=== PATIENT | male | born 1950 | race Caucasian/White ===

== ENCOUNTER 2016-10-07 20:14 | Observation (INO) | payer MEDICARE, BC ==
[~2016-10-07 20:14] MED LIST: ASPIRIN E.C. 8181 M1 PO; CADUET 10 MG-201 TAB PO; FLUOXETINE20 M1 PO; HCTZ 25MG TAB25 MG PO; PREDNISONE20 MG PO; VIAGRA100 MG PO
[2016-10-07] MEDS ORDERED: PROZAC20 M1 PO (20:31)
[2016-10-07] MEDS ORDERED: NORVASC 10MG10 MG PO (20:32)
[2016-10-07] MEDS ORDERED: LIPITOR20 M2 PO (20:32)
--- NOTE | 2016-10-07 23:47 | NUR ---
PATIENT ADMITTED FROM ER TO OBSERVATION STATUS WITH DIAGNOSIS OF GI BLEED, PATIENT HAD NOTICED BLOOD IN STOOLS X 1 DAY AND BLOOD IN VOMIT X 1 DAY, BUT HAD NOTICED DARK COLORED STOOLS FOR ABOUT A WEEK, IV IN PLACE TO RIGHT WRIST UPON ADMISSION, PATIENT ALERT AND ORIENTED, MILD NAUSEA, C/O DIFUSE ABDOMINAL ACHING RATED 2/10, ORIENTED TO ROOM, ENCOURAGED TO CALL BEFORE GETTING UP, EDUCATED ON PLAN OF CARE, AT BEDSIDE AT TIME OF ADMISSION, SHE WILL GO HOME TO BRING HIS CPAP MACHINE AND HOME MEDICATIONS UP,
[2016-10-07 23:59] VITALS: BP 142/93
[2016-10-08 02:53] VITALS: BP 157/96
--- NOTE | 2016-10-08 05:40 | NUR ---
PATIENT AMBULATES TO THE BATHROOM, VOIDS AND HAS A LOOSE DARK COLORED STOOL, THERE IS SOME RED NOTED AROUND THE RIM OF THE TOILET, PATIENT DENIES ANY NAUSEA, PAIN RATED 1/10 A VERY MILD ACHE TO HIS ABDOMEN, STATES HE FEELS MUCH BETTER, AMBULATES BACK TO BED, VITALS TAKEN, CPAP PLACED BACK ON FACE, DENIES ANY NEEDS/COMPLAINTS AT THIS TIME
[2016-10-08 06:22] VITALS: BP 149/85
--- NOTE | 2016-10-08 07:30 | NUR ---
PATIENT HAS HAD 3 DARK COLORED STOOLS SINCE ADMISSION TO ER LAST NIGHT, ONE WHILE IN ER AND 2 SINCE MIDNIGHT, NO VOMITING NOTED, DENIES ANY CURRENT NAUSEA, RESTING QUIETLY IN BED, CALL LIGHT WITHIN REACH
--- NOTE | 2016-10-08 09:28 | NUR ---
Pt sitting up in bed. Rates pain 1/10 in abd and describes it as a soreness from vomitting yesterday. Has not had any more stool this shift. IV infusing as ordered.
[2016-10-08 11:41] VITALS: BP 135/81
[2016-10-08 15:03] VITALS: BP 121/73
--- NOTE | 2016-10-08 15:13 | NUR ---
Pt resting in bed. Continues to deny any pain or nausea. Inquring when he will be able to go home. No stools noted this shift so far. IV infusing as ordered. Call light in reach.
--- NOTE | 2016-10-08 15:56 | NUR ---
Pt has moderate amount of dark colored blood tinged soft loose stool. Pt reports amount of blood has improved from prior stools in the night
--- NOTE | 2016-10-08 16:46 | NUR ---
Pt ambulates in hallway. Denies any pain, SOB, lightheaded or weakness. Tolerates well. Dr. Forbes updated
[2016-10-08 18:25] VITALS: BP 120/79
--- NOTE | 2016-10-08 18:56 | NUR ---
REPORT RECEIVED FROM GEGE Pizarro RN.
--- NOTE | 2016-10-08 23:00 | NUR ---
Resting in bed with eyes closed, even, none labored respirations. Opens eyes when spoken too. Denies pain. States abd is slightly tender to touch. States he has not had any furthur bowel movement. Pt drank apple juice for evening snack. IV is patent, no redness or swelling and none tender to touch. IV infusing at 75mls per hour via pump. Lungs sounds CTA, abd soft and bowel sounds active x 4 quadrants. Heart tones S1, S2 heard and regular. Radial pulse (3) strong. Dorsal pulse (3) strong, tibial pulse (2) present. No edema noted in ankles or feet. Pupils equal and reactive to light. Skin warm, pink and dry.
[2016-10-08 23:05] VITALS: BP 124/78
--- NOTE | 2016-10-09 | NUR ---
At 2340 pt ambulated to bathroom with one person stand by assist. Gait steady.
--- NOTE | 2016-10-09 02:38 | NUR ---
Resting in bed, awake and a/o x 3. Denies having any needs or concerns. Had medium dark stool. Pt denies having any abd pain.
[2016-10-09 03:10] VITALS: BP 131/76
--- NOTE | 2016-10-09 06:20 | NUR ---
Q hourly checks done. Has been resting in bed with eyes closed on and off. When awake, pt is a/o x 3. Denies pain of any kind. Denies nausea. Pt has repositioned self in bed. IV of Normal Saline infusing at 75mls/hr.
[2016-10-09 06:31] VITALS: BP 157/101
[2016-10-09 06:48] VITALS: BP 118/78
--- NOTE | 2016-10-09 07:15 | NUR ---
Report given Radha Meredith RN
--- NOTE | 2016-10-09 08:36 | NUR ---
Pt sitting up in bed. Denies any pain. Denies any nausea. Reports he is passing more gas today. Describes 2 loose BM through the night. BS active in all 4 quad.
[2016-10-09] MEDS ORDERED: PEPCID 20MG TAB20 MG PO (10:25)
[2016-10-09] MEDS ORDERED: PREDNISONE20 M1 PO (10:25)
[2016-10-09 10:37] VITALS: BP 132/74
--- NOTE | 2016-10-09 11:10 | NUR ---
Reviewed discharge instruction with pt. He verbalizes understanding and will return this evening for outpatient lab follow ups. Pt leaves at this time with all belongings
== END 2016-10-09 11:10 | disposition home or self-care (01) ==
LOC: ED 20:14 → MED/SURG 23:47
PROVIDERS: ADMIT Family Medicine
DX: K51.911 Ulcerative colitis, unspecified with rectal bleeding (principal); D62 Acute posthemorrhagic anemia; G47.30 Sleep apnea, unspecified; I10 Essential (primary) hypertension; Z79.82 Long term (current) use of aspirin; K92.0 Hematemesis; K57.30 Diverticulosis of large intestine without perforation or abscess without bleeding
CPT/HCPCS: G0378; J2405; J2930; J7030

== ENCOUNTER → 2016-10-09 | Outpatient (CLI) | payer MEDICARE, BC ==
[~2016-10-09] MED LIST changes: +LIPITOR20 M2 PO; +NORVASC 10MG10 MG PO; +PEPCID 20MG TAB20 MG PO; +PREDNISONE20 M1 PO; +PROZAC20 M1 PO
== END ==
LOC: LAB 17:51
DX: D64.9 Anemia, unspecified (principal); K92.2 Gastrointestinal hemorrhage, unspecified; K51.90 Ulcerative colitis, unspecified, without complications

== ENCOUNTER → 2016-10-10 | Outpatient (CLI) | payer MEDICARE, BC | LOC: LAB 16:11 | DX: D64.9 Anemia, unspecified (principal); K92.2 Gastrointestinal hemorrhage, unspecified; K51.90 Ulcerative colitis, unspecified, without complications ==

== ENCOUNTER 2017-10-11 09:30 | Outpatient (RCR) | payer MEDICARE, BC | END 2017-10-11 10:00 | disposition home or self-care (01) | LOC: PT 09:30 | DX: M25.512 Pain in left shoulder (principal); G89.29 Other chronic pain | CPT/HCPCS: G8985-GP ==

== ENCOUNTER 2019-01-12 16:30 | Emergency (ER) | payer MEDICARE, BC ==
[~2019-01-12] VITALS: Ht 180.3 cm; Wt 84.1 kg
[2019-01-12] MEDS ORDERED: OMEPRAZOLE D/R20 MG PO (16:39)
[2019-01-12] MEDS ORDERED: LATANOPROST 2.2.5 ML OU (16:40)
[2019-01-12] MEDS ORDERED: BALSALAZIDE DI750 M1 PO (16:41)
[2019-01-12] MEDS ORDERED: CEPHALEXIN500 M1 PO (17:54)
[2019-01-12] MEDS ORDERED: NORCO 325 MG-51 TA1 PO (17:54)
[2019-01-12 18:10] VITALS: BP 139/97
== END 2019-01-12 18:15 | disposition home or self-care (01) ==
LOC: ED 16:30
DX: S01.312A Laceration without foreign body of left ear, initial encounter (principal); I10 Essential (primary) hypertension; E78.5 Hyperlipidemia, unspecified; W21.04XA Struck by golf ball, initial encounter; Y92.39 Other specified sports and athletic area as the place of occurrence of the external cause

== ENCOUNTER → 2020-08-27 | Outpatient (CLI) | payer MEDICARE, BC ==
[2019-01-18 07:53] VITALS: BP 141/94
[~2020-08-27] MED LIST changes: +BALSALAZIDE DI750 M1 PO; +CEPHALEXIN500 M1 PO; +LATANOPROST 2.2.5 ML OU; +NORCO 325 MG-51 TA1 PO; +OMEPRAZOLE D/R20 MG PO
== END ==
LOC: RAD 07:48
DX: Z13.6 Encounter for screening for cardiovascular disorders (principal); Z87.891 Personal history of nicotine dependence